=== PATIENT | female | born 1940 | race Caucasian/White ===

== ENCOUNTER → 2023-02-13 | Outpatient (CLI) | payer MEDICARE, OTHER, SELFPAY ==
--- NOTE | 2023-02-13 | DI.RAD.S_ITS ---
PROCEDURE: XR CHEST 2V INDICATIONS: Other forms of dyspnea TECHNIQUE: 2 views of the chest were acquired. COMPARISON: None. FINDINGS: Surgical changes and devices: None. Lungs and pleura: Mild diffuse reticulonodular pulmonary opacity. No pleural effusions or pneumothorax. Mediastinum: Mediastinal contours are normal. Heart size is normal. Bones and chest wall: No suspicious bony abnormalities. Soft tissues appear unremarkable. IMPRESSION: Mild atypical pneumonia. Dictated by: Vern Marcial M.D. on 02/13/2023 at 14:18 Transcribed by: [email or web address] on 02/13/2023 at 14:18 Approved by: Vern Marcial M.D. on 02/13/2023 at 16:23
--- NOTE | 2023-02-14 22:12 | DI.NM.S_ITS ---
DATE OF SERVICE: 02/13/2023 PROCEDURE: Pharmacological perfusion study. INDICATIONS: Shortness of breath with underlying diabetes mellitus, hypertension. RADIOPHARMACEUTICAL: 25.1 millicurie technetium-99m Myoview IV was injected at stress and 27.5 millicurie technetium-99m Myoview IV was injected at rest. CARDIAC STRESS: The patient underwent IV Lexiscan perfusion study under the supervision of an attending staff as per standard protocol. She remained hemodynamically stable. Baseline blood pressure 140/80. Baseline rhythm sinus. During stress, no convincing ischemic changes seen. The patient had some isolated PVCs without any ventricular tachycardia. No chest pain. RAW DATA: There is significant breast shadow seen. The patient's weight is 266 pounds. GATED STUDY: Stress LV ejection fraction 68% without any obvious wall motion abnormalities. Resting end-diastolic volume 131 mL. TID ratio 0.95 which is within normal limits. Lung/heart ratio 0.36, which is within normal limits. MYOCARDIAL PERFUSION SCAN: Stress supine and resting supine, as well as stress prone images were compared to each other. Stress supine and resting supine images revealed moderate size, severely decreased perfusion of mid to distal anterior wall extending into the anteroapex, which got significantly improved during stress prone images. However, stress prone images showed anterior apical perfusion defect. Mid to distal anterior wall defect significantly improved. No reversible ischemia. CONCLUSION: No obvious reversible ischemia. I will call this study likely a normal myocardial perfusion study with evidence of breast tissue attenuation artifact, which got significantly improved in the stress prone images. Raw data revealed large breast shadow. Anterior wall and apex are moving well. Hence, most likely we are dealing with breast tissue attenuation artifact including some persistent breast tissue attenuation artifact. In view of preserved left ventricular function, overall low-risk myocardial perfusion scan. Correlate clinically. Carrol Jayshree - LISA/tino/selina doc#: [id number]/job#: [id number] dd: 02/14/2023 16:49:00 dt: 02/14/2023 22:00:00 DICTATING MD/COPIES TO: Azra Carson MD COPIES MNE: HEATHER;
== END ==
PROVIDERS: Family Provider Physician Assistant Medical; PCP Physician Assistant Medical; Referring Provider Physician Assistant Medical; Visit Provider Physician Assistant Medical
DX: R06.09 Other forms of dyspnea (principal); J18.9 Pneumonia, unspecified organism
CPT/HCPCS: 71046; 78452; 93017; A9502; J2785

== ENCOUNTER → 2024-06-27 14:00 | Outpatient (CLI) | payer MEDICARE, OTHER, SELFPAY ==
--- NOTE | 2024-06-27 14:30 | DI.CT.S_ITS ---
PROCEDURE: CT CHEST HIGH RESOLUTION INDICATIONS: pulmonary fibrosis concern (PFT with restriction) TECHNIQUE: Noncontrast 1.0 and 5.0 mm thick contiguous axial sections from the pulmonary apex to the posterior costophrenic angles, with 7 mm thick coronal and sagittal MIP reformats. 1 mm thick dynamic expiratory images acquired through the upper, mid, and lower lungs. 1.0 mm thick axial sections acquired from the devante to the posterior costophrenic angles in the prone end-inspiration position. For radiation dose reduction, the following was used: automated exposure control, adjustment of mA and/or kV according to patient size. COMPARISON: [facility], CR, XR CHEST 2V, 02/13/2023, 12:17. FINDINGS: Image quality: Diagnostic Lungs and pleura: Peripheral predominant moderate reticulation, involving the anterior upper lobes and lateral lower lobe. No honeycombing. There is associated traction bronchiectasis. Moderate diffuse air trapping is noted No significant changes on prone imaging. The costophrenic angles are relatively spared Mediastinum, heart, and esophagus: Atherosclerotic calcifications. Moderate hiatal hernia. Mildly enlarged mediastinal lymph nodes are present, indeterminate. Coronary and annular and valvular calcifications. Chest wall and thyroid: Unremarkable Upper abdomen: Lobulated liver contour is incidentally noted Bones: There are degenerative changes. IMPRESSION: Moderate peripheral reticulation with relative sparing of the costophrenic angles. This predominantly involves the lateral lower lobes and anterior upper lobes. No overt honeycombing. Moderate air trapping. 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 Mixed ILD or CVD related ILD are also possible. Consider future followup to assess for progression and any pulmonary nodules. ATS 2018 HRCT classification: Indeterminate for UIP Dictated by: Abdi Limon M.D. on 06/28/2024 at 14:03 Approved by: Abdi Limon M.D. on 06/28/2024 at 14:08
--- NOTE | 2024-06-27 15:10 | DI.ECHO.S_ITS ---
[facility] : : [address] : : [place] : : [id number] : : Phone: [phone] Echocardiogram Report + + :Name: JENA RENDON Study Date: 06/27/2024 Height: 65 in : :[facility] ReadingLocation: Weight: 250 lb : : Gender: Female BSA: 2.2 m2 : :: 1940 Age: 84 yrs BP: 141/71 mmHg: :Reason For Study: DYSPNEA : :Ordering Physician: GERMANIA, : :NAKUL Performed By: Caleb Sharp : :Referring: NAKUL SOLO : + + Interpretation Summary The patient was in sinus bradycardia with heart rates between 45-53 bpm during the exam. The ejection fraction is estimated to be 60-65%. Grade II diastolic dysfunction. The right ventricle is normal in size and function. Both atria are moderately dilated. There is mild aortic stenosis. Pulmonary artery pressures cannot be estimated because of the lack of a measurable TR jet velocity. Procedure: A two-dimensional transthoracic echocardiogram with color flow and Doppler was performed. The study quality was technically difficult. There is no prior echocardiogram noted for this patient. The patient was in sinus bradycardia with heart rates between 45-53 bpm during the exam. Left Ventricle: The left ventricle is normal in size. There is normal left ventricular wall thickness. There is no ventricular septal defect visualized. The ejection fraction is estimated to be 60-65%. Regional wall motion abnormalities cannot be excluded due to limited visualization. Diastolic parameters suggest a pseudonormalization pattern, consistent with probable elevated filling pressures. Right Ventricle: The right ventricle is normal in size and function. The right ventricular systolic function is normal. Atria: Both atria are moderately dilated. There is no Doppler evidence for an atrial septal defect. Mitral Valve: The mitral valve leaflets are mildly calcified. The mitral valve leaflets appear mildly thickened, but open well. There is moderate mitral annular calcification. There is trace mitral regurgitation. Aortic Valve: The aortic valve is trileaflet. There is mild to moderately reduced leaflet mobility. The aortic valve is moderately calcified. The peak aortic velocity is 2.47 m/sec. The aortic valve mean gradient is 13.9 mmHg. There is mild aortic stenosis. No aortic regurgitation is present. Tricuspid Valve: The tricuspid valve is normal in structure and function. There is a trace or physiologic amount of tricuspid regurgitation. Pulmonary artery pressures cannot be estimated because of the lack of a measurable TR jet velocity. Pulmonic Valve: The pulmonic valve is normal in structure and function. There is trace pulmonic regurgitation. Great Vessels: The aortic root is normal size. The dimensions of the ascending aorta are normal. The pulmonary artery is normal size. The inferior vena cava was not visualized. Pericardium/ Pleura There is no pericardial effusion. There is no pleural effusion. MMode/2D Measurements & Calculations LVIDd: 5.0 cm LVOT diam: 1.8 cm LVIDs: 3.0 cm Ao root diam: 2.9 cm FS: 39.8 % asc Aorta Diam: 2.9 cm EPSS: 1.1 cm IVSd: 0.99 cm LVPWd: 0.90 cm LV hanley. diameter/BSA (cm/m^2): 2.3 LV sys. diameter/BSA (cm/m^2): 1.4 LA A2 area: 22.7 cm2 RA long axis: 5.5 cm LA A4 area: 26.2 cm2 RA area: 16.1 cm2 LA length (vol): 6.3 cm RA vol: 39.9 ml LA vol: 80.9 ml RA : 18.4 ml/m2 LA vol index: 37.2 ml/m2 RVD1 (basal): 3.4 cm RVD2 (mid): 3.1 cm TAPSE: 2.1 cm Doppler Measurements & Calculations Ao V2 max: 247.1 cm/sec LVOT Max Collin: 100.5 cm/sec Ao V2 mean: 178.1 cm/sec LV V1 max P.0 mmHg Ao max P.4 mmHg LV V1 VTI: 31.1 cm Ao mean P.9 mmHg ANSON(I,D): 1.1 cm2 Ao V2 VTI: 72.2 cm ANSON(V,D): 1.0 cm2 sev ratio: 0.43 ANSON indexed to BSA (cm^2/m^2): 0.50 MV E max collin: 126.7 cm/sec TR max collin: 223.8 cm/sec MV A max collin: 79.5 cm/sec TR max P.0 mmHg MV E/A: 1.6 PA V2 max: 72.6 cm/sec Med Peak E' Collin: 2.1 cm/sec PA V2 mean: 51.7 cm/sec E/E' med: 61.2 PA mean P.2 mmHg Lat Peak E' Collin: 5.4 cm/sec PA pr(Accel): 29.3 mmHg E/E' lat: 23.4 E/e' average: 42.3 MV dec time: 0.26 sec SV(LVOT): 78.4 ml Reading Physician:04:36 PM
== END ==
PROVIDERS: Family Provider Physician Assistant Medical; PCP Physician Assistant Medical; Referring Provider Student in an Organized Health Care Education/Training Program; Visit Provider Student in an Organized Health Care Education/Training Program
DX: I35.0 Nonrheumatic aortic (valve) stenosis (principal); I34.81 Nonrheumatic mitral (valve) annulus calcification; J98.4 Other disorders of lung; R06.00 Dyspnea, unspecified; K44.9 Diaphragmatic hernia without obstruction or gangrene; R59.0 Localized enlarged lymph nodes
CPT/HCPCS: 71250; C8929; Q9957

== ENCOUNTER 2025-06-12 11:42 | Emergency (ER) | payer MEDICARE, OTHER, SELFPAY ==
[2025-06-12] VITALS (28 sets, daily range): BP systolic 73–128; BP diastolic 41–68; PULSE 53–63; RESP 13–28; TEMP 36.5; O2SAT 89–96; BMI 40.5
--- NOTE | 2025-06-12 12:01 | DI.RAD.S_ITS ---
PROCEDURE: XR CHEST 1V INDICATIONS: Shortness of breath TECHNIQUE: One view of the chest was acquired. COMPARISON: [facility], CR, XR CHEST 2V, 02/13/2023, 12:17. FINDINGS AND IMPRESSION: Low lung volumes. Diffuse [id number] interstitial prominence and patchy opacities, possibly infectious or edema. Consider future imaging surveillance to assess for resolution. No significant pleural effusions. Aortic calcifications. Heart size is at the upper limit of normal. Degenerative osseous changes. Dictated by: Abdi Limon M.D. on 06/12/2025 at 13:05 Approved by: Abdi Limon M.D. on 06/12/2025 at 13:06
--- NOTE | 2025-06-12 12:01 | EKG_ITS ---
[address] [address] Test Date: 2025-06-12 Pat Name: Jayshree Branham Department: [facility] Room: Gender: Female [employer] Clerk: JOVANNA : 1940 Requested By: Order Number: [id number] Reading MD: Alfa Jenkins MD Measurements Intervals [place] Rate: 55 P: 53 ID: [id number] QRS: 80 QRSD: 86 T: 75 QT: 440 QTc: 420 Interpretive Statements Sinus bradycardia Electronically Signed On 06-16-2025 7:43:40 PDT by Alfa Jenkins MD
--- NOTE | 2025-06-12 12:08 | ED.SOB ---
HPI - SOB/Dyspnea General Chief Complaint: Shortness of Breath/Dyspnea Stated Complaint: Pulmonary fibrosis/can't keep oxygen up Time Seen by Provider: 06/12/25 12:08 Source: patient, RN notes reviewed and old records reviewed Mode of arrival: Wheelchair Limitations: no limitations History of Present Illness HPI Narrative: 85-year-old female with known history of pulmonary fibrosis, hypertension, dyslipidemia, diabetes Wixela, patient was started on oxygen in the past 6 months. Patient presents with worsening shortness of breath particularly with exertion. She states she was initially started on oxygen as needed with the exertion has gone to using it 247 is now having increasing O2 needs. She has been following with pulmonology they recently stopped her Wixela as they felt it was not helpful they thought she was having a little bit of a hypertensive crisis and fluid overloaded and started her on Lasix 40 mg b.i.d. this Monday. She has a lot of diuresis of fluids but has not had much improvement of her breathing. No reported fevers. No nasal congestion. She does note some chest discomfort when her O2 sats are low but not at other times. She does not feel short of breath at rest. Patient denies any vomiting but has had some mild nausea. No diaphoresis. No new changes to bowel movements. No new changes to urination such as dysuria or urgency. Patient states no new swelling of extremities. She is noted to have little bit of low blood pressure on arrival she states her normal is 120 systolic. She states she is not on any steroids currently. No current inhalers. She has had prior bilateral knee surgery, appendectomy but no prior cardiac or pulmonary interventions. Did smoke for about 40 years. No active tobacco use currently. No alcohol, no recreational drugs. 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 CHANG Langford is her primary care provider. She is accompanied by family. Patient's home medications include atenolol, atorvastatin, tramadol, losartan, metformin, meloxicam, pantoprazole, Wixela, premarin. Related Data Home Medications ?Medication ?Instructions ?Recorded ?Confirmed atenolol 100 mg tablet 100 mg PO QDAY ##0 01/21/13 06/09/25 conjugated estrogens 0.45 mg 0.45 mg PO QDAY ##0 01/21/13 06/09/25 tablet (Premarin) esomeprazole magnesium 40 mg 40 mg PO QDAY ##0 01/21/13 06/09/25 capsule,delayed release (Nexium) metformin 500 mg tablet 500 mg PO BID ##0 01/21/13 06/09/25 (Glucophage) [GLUCOSAMINE/CHROND] 1,500 mg PO BID ##0 02/05/13 06/09/25 atorvastatin 20 mg tablet 20 mg PO DAILY 01/16/25 06/09/25 cholecalciferol (vitamin D3) 50 50 mcg PO DAILY 01/16/25 06/09/25 mcg (2,000 unit) capsule losartan 25 mg tablet 12.5 mg PO DAILY 01/16/25 06/09/25 meloxicam 15 mg tablet 15 mg PO DAILY 01/16/25 06/09/25 tramadol 50 mg tablet 50 mg PO BID PRN 01/16/25 06/09/25 albuterol sulfate 90 mcg/actuation 1 inh inhalation Q4-6H PRN 06/09/25 06/09/25 breath activated powder inhaler Previous Rx's ?Medication ?Instructions ?Recorded fluticasone 100 mcg-salmeterol 50 1 inh inhalation BID #60 ea 07/17/24 mcg/dose blistr powdr for inhalation (Advair Diskus) furosemide 40 mg tablet (Lasix) See Rx Instructions PO .COMPLEX 06/09/25 #90 tabs cephalexin 500 mg capsule 500 mg PO Q6H 7 days #28 caps 06/12/25 doxycycline hyclate 100 mg tablet 100 mg PO BID #20 tabs 06/12/25 Allergies Allergy/AdvReac Type Severity Reaction Status Date / Time No Known Drug Allergies Allergy Verified 06/12/25 12:01 Review of Systems Review of Systems ROS Unobtainable: All systems reviewed & are unremarkable except as noted in HPI and below Patient History Medical History (HFpEF) heart failure with preserved ejection fraction Pulmonary fibrosis Hypoxemia Dyspnea Restrictive lung disease Social History Smoking Status: Unknown if ever smoked Smoking Status: Unknown if ever smoked Exam Narrative Exam Narrative: GEN: Elderly appearing female, alert and oriented x 3, patient appears to be in mild distress. HEENT: Atraumatic, pupils are equal round reactive to light, extraocular movements are intact, nares are clear, nasal cannula in place, there is no conjunctival pallor. Throat is clear without any exudates, erythema, tonsillar enlargement or uvular deviation HEART: Bradycardic but regular rhythm without murmur, clicks, rubs. No edema bilateral lower extremities. LUNGS:Lungs slightly course bilaterally, no wheezes, no rales, crackles, chest moves symmetrically,no tachypnea on exam. ABD:bowel sounds normal, soft, non-tender, no guarding, rebound, rigidity, no masses noted, no hepatosplenomegaly :No CVA tenderness MSCL: Non-tender, no edema bilateral lower extremities, full range of motion. NEURO:CN 2-12 intact. sensation normal. Initial Vital Signs Initial Vital Signs: Vital Signs Temperature 97.7 F 06/12/25 11:44 Pulse Rate 57 L 06/12/25 11:44 Respiratory Rate 18 06/12/25 11:44 Blood Pressure 103/57 L 06/12/25 11:44 Pulse Oximetry 89 L 06/12/25 11:44 Oxygen Delivery Method Nasal Cannula 06/12/25 11:44 Oxygen Flow Rate 3 06/12/25 11:44 Course Orders Ordered: ED Orders 06/12/25 12:01 XR chest 1V Stat Complete Blood Count AUTO DIFF Stat Comprehensive Metabolic Panel Stat Lactate (Lactic Acid) Stat NT-proBNP (BNP-Adult 18+) Stat Procalcitonin Stat Prothrombin Time INR Stat Troponin I Stat EKG-12 Lead Stat Measure peak expiratory flow STAT RT Consult Eval and Treat STAT 06/12/25 12:53 Blood Culture Stat 06/12/25 13:22 CT angio chest PE protocol Stat Discontinued Medications Cephalexin HCl (Cephalexin 250 Mg Capsule) 500 mg PO NOW ONE Stop: 06/12/25 16:16 Last Admin: 06/12/25 16:28 Dose: 500 mg Documented By: FAIZA Doxycycline Hyclate (Doxycycline Hyclate 100 Mg Tablet) 100 mg PO NOW ONE Stop: 06/12/25 16:16 Last Admin: 06/12/25 16:28 Dose: 100 mg Documented By: FAIZA Sodium Chloride (Normal Saline 0.9%) 500 mls @ 1,000 mls/hr IV BOLUS ONE Stop: 06/12/25 13:01 Last Infusion: 06/12/25 13:58 Dose: Infused Documented By: Admin: 06/12/25 12:36 Dose: 1,000 mls/hr Documented By: FAIZA Vital Signs Vital signs: Vital Signs - 8 hr 06/12/25 11:44 06/12/25 11:49 06/12/25 11:52 Temperature 97.7 F Pulse Rate 57 L 62 58 L Respiratory Rate 18 13 Blood Pressure 103/57 L Pulse Oximetry 89 L 91 89 L Oxygen Delivery Method Nasal Cannula Oxygen Flow Rate 3 06/12/25 11:52 06/12/25 11:59 06/12/25 11:59 Temperature Pulse Rate 57 L Respiratory Rate 23 Blood Pressure 73/41 L 103/57 L Pulse Oximetry 93 Oxygen Delivery Method Oxygen Flow Rate 06/12/25 12:00 06/12/25 12:00 06/12/25 12:30 Temperature Pulse Rate 56 L 54 L Respiratory Rate 21 25 H Blood Pressure 96/53 L Pulse Oximetry 93 93 Oxygen Delivery Method Oxygen Flow Rate 06/12/25 12:31 06/12/25 12:32 06/12/25 12:33 Temperature Pulse Rate 55 L 55 L Respiratory Rate 27 H 28 H Blood Pressure 114/64 Pulse Oximetry 93 93 Oxygen Delivery Method Oxygen Flow Rate 06/12/25 12:33 06/12/25 13:00 06/12/25 13:03 Temperature Pulse Rate 55 L 54 L Respiratory Rate 24 20 Blood Pressure 127/60 Pulse Oximetry 94 94 Oxygen Delivery Method Oxygen Flow Rate 06/12/25 13:03 06/12/25 13:15 06/12/25 13:15 Temperature Pulse Rate 55 L 55 L Respiratory Rate 21 25 H Blood Pressure 125/58 L Pulse Oximetry 95 94 Oxygen Delivery Method Oxygen Flow Rate 06/12/25 13:30 06/12/25 13:31 06/12/25 13:31 Temperature Pulse Rate 55 L 56 L Respiratory Rate 24 19 Blood Pressure 94/47 L Pulse Oximetry 93 93 Oxygen Delivery Method Oxygen Flow Rate 06/12/25 13:49 06/12/25 13:49 06/12/25 14:00 Temperature Pulse Rate 58 L Respiratory Rate 18 Blood Pressure 128/57 L 123/60 Pulse Oximetry 94 Oxygen Delivery Method Oxygen Flow Rate 06/12/25 14:00 06/12/25 14:15 06/12/25 14:15 Temperature Pulse Rate 54 L 54 L Respiratory Rate 22 22 Blood Pressure 123/58 L Pulse Oximetry 95 96 Oxygen Delivery Method Oxygen Flow Rate 06/12/25 14:30 06/12/25 14:30 06/12/25 14:45 Temperature Pulse Rate 57 L Respiratory Rate 26 H Blood Pressure 127/57 L 122/60 Pulse Oximetry 95 Oxygen Delivery Method Oxygen Flow Rate 06/12/25 14:45 06/12/25 15:00 06/12/25 15:00 Temperature Pulse Rate 54 L 53 L Respiratory Rate 21 20 Blood Pressure 115/56 L Pulse Oximetry 94 94 Oxygen Delivery Method Oxygen Flow Rate 06/12/25 15:15 06/12/25 15:15 06/12/25 15:30 Temperature Pulse Rate 55 L Respiratory Rate 24 Blood Pressure 104/51 L 117/49 L Pulse Oximetry 94 Oxygen Delivery Method Oxygen Flow Rate 06/12/25 15:30 06/12/25 15:46 06/12/25 15:46 Temperature Pulse Rate 55 L 56 L Respiratory Rate 19 21 Blood Pressure 125/60 Pulse Oximetry 95 93 Oxygen Delivery Method Oxygen Flow Rate 06/12/25 16:00 06/12/25 16:01 06/12/25 16:01 Temperature Pulse Rate 59 L 56 L Respiratory Rate 27 H 23 Blood Pressure 113/52 L Pulse Oximetry 93 94 Oxygen Delivery Method Oxygen Flow Rate 06/12/25 16:15 06/12/25 16:15 06/12/25 16:30 Temperature Pulse Rate 58 L 60 Respiratory Rate 24 22 Blood Pressure 115/55 L Pulse Oximetry 94 94 Oxygen Delivery Method Oxygen Flow Rate 06/12/25 16:31 06/12/25 16:31 Temperature Pulse Rate 63 Respiratory Rate 27 H Blood Pressure 119/68 Pulse Oximetry 95 Oxygen Delivery Method Oxygen Flow Rate MDM - SOB/Dyspnea Lab Data 06/12/25 12:01 06/12/25 12:01 Labs: Lab Results 06/12/25 Range/Units 12:01 WBC 12.1 H (4.5-11.0) X10^3/uL RBC 5.14 (4.0-5.2) X10^6/uL Hgb 14.1 (12.0-16.0) g/dL Hct 42.9 (36-46) % MCV 83.5 (80-100) fL MCH 27.4 (26-34) PG MCHC 32.8 (30-36) % RDW 17.2 H (11.6-14.8) % Plt Count 182 (150-400) X10^3/uL Neut % (Auto) 65.6 (50-75) % Lymph % (Auto) 16.4 L (25-40) % [place] % (Auto) 13.7 (3-14) % Eos % (Auto) 3.5 (2-4) % Baso % (Auto) 0.8 (0-2) % Neut # (Auto) 8000 H (6437-5355) /uL Lymph # (Auto) 2000 (2188-5957) /uL [place] # (Auto) 1700 H (0-900) /uL Eos # (Auto) 400 (0-450) /uL Baso # (Auto) 100 (0-100) /uL PT 13.3 H (9.4-12.5) SECONDS INR 1.2 (0.9-1.3) Sodium 131 L (137-145) mmol/L Potassium 4.2 (3.4-5.1) mmol/L Chloride 91 L (98-107) mmol/L Carbon Dioxide 28 (22-32) mmol/L BUN 63 H (7-17) mg/dL Creatinine 1.46 H (0.52-1.04) mg/dL Estimated GFR 35 L (>60) mL/min BUN/Creatinine Ratio 43.2 H (6-22) Glucose 138 H (70-99) mg/dL Lactate 1.7 (0.7-2.1) mmol/L Calcium 9.3 (8.4-10.2) mg/dL Total Bilirubin 1.6 H (0.2-1.3) mg/dL AST 47 H (14-36) IU/L ALT 49 H (<35) IU/L Alkaline Phosphatase 76 (38-126) U/L Troponin I 0.017 (0.01-0.034) ng/mL NT-Pro-B Natriuret Pep 678 H (<450) pg/mL Total Protein 7.5 (6.3-8.2) g/dL Albumin 3.9 (3.5-5.0) g/dL Globulin 3.6 (1.7-4.1) g/dL Albumin/Globulin Ratio 1.1 (1.0-2.8) Procalcitonin 0.162 (<0.5) ng/mL ECG Data Attestation: I personally reviewed and interpreted this ECG as follows: Prior ECG tracings: available for review Interpretation: Sinus bradycardia rate of 55 VA 150 QRS 86 QTC of 420, no acute ST elevation or depression noted. Patient has prior from 01/21/2013 which showed a rate of 54 there was questionable artifact versus atrial fibrillation on prior EKG. MDM Narrative Medical decision making narrative: EKG sinus bradycardia no acute ST changes appreciated. Labs show white count of 12.1, hemoglobin of 14 platelets of 182, INR is 1.2 sodium is 131, potassium is 4.2 with a chloride of 91 CO2 is 28 creatinine is 1.46 with a BUN is 63 family did indicate patient has some baseline chronic kidney disease, glucose is 138 bilirubin is 1.6 with a AST of 47 ALT of 49 alk-phos is 76. Troponin is 0.017 with a BNP of 678. Procalcitonin is 0.162. Lactate was normal at 1.7 Chest x-ray shows low lung volumes diffuse [id number] instead of prominence of patchy opacities possibly infectious or edema consider future imaging surveillance assess for resolution. No significant pleural effusions aortic calcifications heart size upper limit of normal degenerative osseous changes. CTA PE protocol no pulmonary embolism no thoracic aortic aneurysm or gross dissection prominent size of main pulmonary artery which can be seen associated with the pulmonary vasculature hypertension. Chronic interstitial reticular thickening and peripheral bilateral lung garcia unchanged from prior study concerning for interstitial lung disease developing pulmonary fibrosis. No pleural effusion or pneumothorax. Hazy ground-glass opacities in bilateral lung garcia concerning for pulmonary edema versus pneumonitis. No pleural effusion or pneumothorax. Cardiomegaly no pericardial effusion, stable mildly prominent mediastinal lymph nodes unchanged from prior study. Moderate size hiatal hernia. Lobulated liver contour unchanged from prior study. Patient politely deferred any viral testing. Patient has prior echo from 06/27/2024 which showed an EF of 60-65 present grade 2 diastolic dysfunction to: Normal in size and function with both atrium moderately dilated and mild aortic stenosis. Pulmonary artery pressures could not be estimated because of lack a measurable TR jet velocity. There was no pericardial effusion. Discussed with the patient labs and evaluation seemed to support possibly more pneumonitis/in fat/component. Discussed with the patient we will cover with a course of oral antibiotics. She did have diuretic started by her manufacturing assistant recently. They also stopped her Wixela. Patient supposed to continue her diuretic after the end of the week at 40 mg daily we will have her go ahead and convert to this currently as I think she has a little bit intravascularly dry. Blood pressure seems a little bit improved after 500 mL bolus. She has not had any increasing O2 requirements had turned her down to 2 L nasal cannula while here. Discharge Plan Departure Patient Disposition: Home Clinical Impression: Diastolic heart failure, Pneumonia, Pulmonary fibrosis Activity Restrictions/Additional Instructions: Follow up with your manufacturing assistant. I suspect you got a little bit intravascularly dry but I do want you to continue urinate Lasix [address] imaging shows some possible edema versus pneumonitis we did cover you with the an oral antibiotic today. Prescription was sent to the [facility]. Please return if you develop fevers, increasing shortness of breath, rapidly worsening O2 requirements, new chest pain or pressure, coughing up blood, new swelling of your extremities or other new or concerning changes. Prescriptions: New cephalexin 500 mg capsule 500 mg PO Q6H 7 Days Qty: 28 0RF doxycycline hyclate 100 mg tablet 100 mg PO BID Qty: 20 0RF No Action atenolol 100 MG tablet 100 mg PO QDAY Qty: 0 metformin [Glucophage] 500 MG tablet 500 mg PO BID Qty: 0 conjugated estrogens [Premarin] 0.45 MG tablet 0.45 mg PO QDAY Qty: 0 esomeprazole magnesium [Nexium] 40 MG capsule,delayed release(DR/EC) 40 mg PO QDAY Qty: 0 [GLUCOSAMINE/CHROND] 1,500 mg PO BID Qty: 0 tramadol 50 mg tablet 50 mg PO BID PRN atorvastatin 20 mg tablet 20 mg PO DAILY losartan 25 mg tablet 12.5 mg PO DAILY meloxicam 15 mg tablet 15 mg PO DAILY cholecalciferol (vitamin D3) 50 mcg (2,000 unit) capsule 50 mcg PO DAILY fluticasone propion-salmeterol [Advair Diskus] 100-50 mcg/dose blister with device 1 inh inhalation BID Qty: 60 5RF albuterol sulfate 90 mcg/actuation aerosol powdr breath activated 1 inh inhalation Q4-6H PRN furosemide [Lasix] 40 mg tablet See Rx Instructions PO .COMPLEX Qty: 90 0RF Rx Instructions: 40mg BID x 1 week, followed by 40mg daily orally; Referrals: Fredy Bolivar MD [Physician, Pulmonology] Liz Langford PA-C [Primary Care Provider, Medical] Stand Alone Forms: Patient Portal/API
[2025-06-12 12:25] LABS: Add Manual Diff / Slide Review NO; Hematocrit 42.9 % (36-46); Hemoglobin 14.1 g/dL (12.0-16.0); Lymphocytes Absolute Auto 2000 /uL (1100-4500); Mean Corpuscular HGB Conc 32.8 % (30-36); Mean Corpuscular Hemoglobin 27.4 PG (26-34); Mean Corpuscular Volume 83.5 fL (80-100); Platelet Count 182 X10^3/uL (150-400)
[2025-06-12 12:28] LABS: INR 1.2 (0.9-1.3); Prothrombin Time 13.3 SECONDS (9.4-12.5)
[2025-06-12 12:34] LABS: Alanine Aminotransferase 49 IU/L (<35); Albumin 3.9 g/dL (3.5-5.0); Albumin Globulin Ratio 1.1 (1.0-2.8); Alkaline Phosphatase 76 U/L (38-126); Blood Urea Nitrogen 63 mg/dL (7-17); Calcium 9.3 mg/dL (8.4-10.2); Carbon Dioxide 28 mmol/L (22-32); Chloride 91 mmol/L (98-107); Estimated Glomerular Filt Rate 35 mL/min (>60); Globulin 3.6 g/dL (1.7-4.1); Glucose 138 mg/dL (70-99); HEMOLYSIS 17 (0-50); Lactate (Lactic Acid) 1.7 mmol/L (0.7-2.1); Potassium 4.2 mmol/L (3.4-5.1); Sodium 131 mmol/L (137-145); Total Protein 7.5 g/dL (6.3-8.2)
[2025-06-12] MEDS: SODIUM CHLORIDE 0.9% 500 ML 1000 ML IV (12:36)
[2025-06-12 12:46] LABS: NT-proBNP (BNP-Adult 18+) 678 pg/mL (<450); Troponin I 0.017 ng/mL (0.01-0.034)
[2025-06-12 13:11] LABS: Procalcitonin 0.162 ng/mL (<0.5)
--- NOTE | 2025-06-12 13:22 | DI.CT.S_ITS ---
PROCEDURE: CT ANGIO CHEST PE PROTOCOL INDICATIONS: his ILD, worsening, rule out PE/pna TECHNIQUE: After the administration of intravenous contrast, 2 mm thick sections acquired from the pulmonary apices to the posterior costophrenic angles. 3-dimensional maximum intensity projection (MIP) coronal and sagittal reformats were then acquired through the thorax. For radiation dose reduction, the following was used: automated exposure control, adjustment of mA and/or kV according to patient size. COMPARISON: [facility], CT, CT CHEST HIGH RESOLUTION, 06/27/2024, 14:16. FINDINGS: Image quality: Diagnostic. Pulmonary arteries: Pulmonary arteries are mildly prominent in size, and demonstrate no intraluminal filling defects to suggest central pulmonary embolism. Lower Neck: No enlarged lymph nodes. Thyroid: No thyroid nodules which require sonographic follow up, per consensus guidelines. Axillae: No enlarged lymph nodes. Chest Wall: Unremarkable. Bones: No aggressive appearing bony lesions. Lungs and Pleura: Biapical scarring is seen. Increased interstitial reticular thickening in periphery of bilateral lung garcia are seen consistent with pulmonary fibrosis. Hazy ground-glass opacities also noted in bilateral lung garcia suggestive of pneumonitis or pulmonary edema. No pleural effusion or pneumothorax. No suspicious pulmonary nodule or mass is seen. Heart: Heart size is enlarged. No pericardial effusion. Thoracic Vessels: No aortic aneurysm. Mediastinum and [place]: Nonspecific mildly prominent mediastinal lymph nodes measures up to 1.1 cm in size. Esophagus: No wall thickening. Moderate sized hiatal hernia. Upper Abdomen: Lobulated liver contour is seen. No abnormality is seen in visualized portion of gallbladder, spleen, pancreas and bilateral adrenal glands. No hydronephrosis is seen in bilateral kidneys. IMPRESSION: 1. No pulmonary embolus. No thoracic aortic aneurysm or gross dissection. Prominent size of main pulmonary artery which can be seen associated with pulmonary vascular hypertension. 2. Chronic interstitial reticular thickening in periphery of bilateral lung garcia unchanged from prior study concerning for interstitial lung disease and developing pulmonary fibrosis. No pleural effusion or pneumothorax. Hazy ground-glass opacities in bilateral lung garcia concerning for pulmonary edema versus pneumonitis. No pleural effusion or pneumothorax. 3. Cardiomegaly, no pericardial effusion. Stable mildly prominent mediastinal lymph nodes unchanged from prior study. Moderate size hiatal hernia. 4. Lobulated liver contour unchanged from prior study. Dictated by: Cali Rogers M.D. on 06/12/2025 at 14:18 Approved by: Cali Rogers M.D. on 06/12/2025 at 14:23
[2025-06-12] MEDS: DOXYCYCLINE HYCLATE 100 MG TABLET PO (16:28)
== END 2025-06-12 16:41 | disposition home or self-care (01) ==
PROVIDERS: Emergency Provider Emergency Medicine; PCP Physician Assistant Medical
DX: I50.30 Unspecified diastolic (congestive) heart failure (principal); J18.9 Pneumonia, unspecified organism; J84.10 Pulmonary fibrosis, unspecified
CPT/HCPCS: 36415; 71045; 71275; 80053; 83605; 83880; 84145; 84484; 85025; 85610; 87040; 93005; 96360; 99285; Q9967

== ENCOUNTER → 2025-06-20 08:20 | Outpatient (CLI) | payer MEDICARE, OTHER, SELFPAY ==
[2025-06-20 09:09] LABS: Blood Urea Nitrogen 88 mg/dL (7-17); Calcium 10.4 mg/dL (8.4-10.2); Carbon Dioxide 28 mmol/L (22-32); Chloride 98 mmol/L (98-107); Estimated Glomerular Filt Rate 32 mL/min (>60); Glucose 126 mg/dL (70-99); HEMOLYSIS 20 (0-50); Potassium 4.9 mmol/L (3.4-5.1); Sodium 135 mmol/L (137-145)
== END ==
PROVIDERS: PCP Physician Assistant Medical; Referring Provider Student in an Organized Health Care Education/Training Program; Visit Provider Student in an Organized Health Care Education/Training Program
DX: I50.32 Chronic diastolic (congestive) heart failure (principal); J84.10 Pulmonary fibrosis, unspecified; R09.02 Hypoxemia
CPT/HCPCS: 36415; 80048